=== PATIENT | female | born 1940 | race Caucasian/White ===

== ENCOUNTER → 2016-12-20 | Outpatient (CLI) | payer MEDICARE | END | disposition disaster alternative care site (69) | LOC: GAMB 17:31 | DX: M25.561 Pain in right knee (principal); M79.89 Other specified soft tissue disorders; E11.9 Type 2 diabetes mellitus without complications; Z79.01 Long term (current) use of anticoagulants; Z79.899 Other long term (current) drug therapy | CPT/HCPCS: A0422; A0425; A0429 ==

== ENCOUNTER → 2017-02-17 | Outpatient (CLI) | payer OTHER, MEDICARE ==
[2017-02-17 10:50] LABS: INR - (THERAPEUTIC) 2.07 (0.92-1.07); PROTIME 21.9 SECONDS (9.8-11.4)
== END ==
PROVIDERS: Family Medicine
DX: I82.593 Chronic embolism and thrombosis of other specified deep vein of lower extremity, bilateral (principal)